=== PATIENT | female | born 1980 | race Caucasian/White ===

== ENCOUNTER → 2016-09-19 | Outpatient (CLI) | payer MEDICAID ==
--- NOTE | 2016-09-19 16:40 | US ---
Dear Dr. Alvarenga, Thank you for sending [ ] to us for a follow-up US to assess interval growth. As you know, the patient is a 36 y.o. G2, P1001 at 22 weeks and 6 days with an EDC of 01/17/17 based on an 8 week US. Her is complicated by AMA and a prior child with a unilateral club foot. At her anatomy US at 19 weeks, growth was borderline with an EFW was in the 10th percentile . Genetic Screening: NIPT reassuring (reported by patient, records not available) The patient denies any uterine contractions, vaginal bleeding, or loss of fluid. She reports excellen t movement. Today, she is without complaints. US FINDINGS: Number of fetuses: 1 Placental location: Anterior, no previa presentation: Transverse, head maternal right Cervix: 3.5 cm, transabdominally MVP: 5.5 cm Measurements: Biparietal diameter: 55 mm, 22 weeks 6 days Head circumference: 204 mm, 22 weeks 4 days Abdominal circumference: 172 mm, 22 weeks 1 days Femur length: 39 mm, 22 weeks 4 days Humerus length: 36 mm, 21 weeks 3 days Transcerebellar diameter: 23 mm, 21 weeks 3 days Cerebral Lateral Ventricle: Suboptimal Cisterna Magna: 6 mm Heart Rate: 138 bpm Average ultrasound age: 22 weeks 4 days Estimated weight: 496 g weight percentile: 20% Anatomy: anatomy was previously assessed. Today the following structures were visualized and appeared n ormal: lateral ventricles, posterior fossa, 4CH view and outflow tracts, stomach, kidneys, and bladde r. The SVC/IVC view was not previously seen. Today, we were able to visualize this cardiac anatomy as normal. Additionally, both feet were again noted to appear normal without evidence of clubbing. IMPRESSION: Growth: The fetus measures appropriate for gestational age, measuring at a normal weight and percenti le. Visualization of the fetus today reveals no overt structural anomalies. There is evidence of norm al amniotic fluid, and movement was seen during the examination. - No further US assessment is indicated given normal size today - However, I recommend a low threshold to obtain a growth US if the patient measures S<D Thank you again for sending this patient to see us today. Approximately 15 minutes were spent with th is patient today with 12 minutes of this time spent in direct face to face counseling regarding today 's US findings and our recommendations. Please contact me with any questions at . Gaviota Gooden MD Maternal- Medicine
--- NOTE | 2016-09-19 18:30 | US ---
Ultrasound Obstetric Follow Up Indication: Advanced maternal age. Family history of clubfoot. The estimated gestational age by LMP is 22 weeks and 6 days yielding an EDC of January 17, 2017. Comparison: August 2016. Findings: Number: 1 Presentation: Transverse with head to the maternal right. Placental location: Anterior without previa Cervix: 3.5 cm Amniotic MVP: 5.5 cm Biometry: Biparietal diameter: 55.00 mm 22 weeks, 6 days Head circumference: 204.44 mm 22 weeks, 4 days Abdominal circumference: 171.51 mm 22 weeks, 1 days Femur length: 38.90 mm 22 weeks, 4 days Humerus length: 36.13 mm 22 weeks, 5 days Transcerebellar diameter: 23.12 mm 21 weeks, 3 days HC/AC: 1.19 ( 1.06-1.25 ) FL/BPD: 71% FL/AC: 23% Average ultrasound age: 22 weeks, 4 days EDC based on today's average ultrasound age: January 19, 2017 Estimated weight is 496 gms +/- 72 gms. The estimated weight is at the 20 % based on prev ious dating. ANATOMY : Previous evaluated. FHR 138 bpm. Today's limited anatomy includes lateral ventricles, four-chamber view the heart comes s tomach, kidneys and bladder. Impression: 1. Living wells in transverse presentation. 2. Size concordant with dates. 3. Please see Dr. Gaviota Gooden's consult and recommendations.
== END ==
LOC: FIMAGING 14:57
DX: O09.522 Supervision of elderly multigravida, second trimester (principal); Z3A.22 22 weeks gestation of pregnancy

== ENCOUNTER 2018-07-02 18:20 | Observation (INO) | payer MEDICAID ==
[2018-07-02] MEDS ORDERED: ACETAMINOPHEN 500 MG TAB PO PRN (19:07)
[2018-07-02] MEDS ORDERED: ACETAMINOPHEN 500 MG TAB ONE (19:14)
[2018-07-02 19:52] LABS: PLATELET COUNT 175 10^3/uL (150-400)
== END 2018-07-02 20:15 | disposition home or self-care (01) ==
LOC: FLD 18:20
PROVIDERS: ADMIT Obstetrics & Gynecology; ATTEND Obstetrics & Gynecology
DX: O99.89 Other specified diseases and conditions complicating pregnancy, childbirth and the puerperium (principal); R10.31 Right lower quadrant pain; Z3A.19 19 weeks gestation of pregnancy
CPT/HCPCS: G0378

== ENCOUNTER → 2018-07-09 | Outpatient (CLI) | payer MEDICAID | LOC: FIMAGING 11:44 | PROVIDERS: ATTEND Registered Nurse | DX: O09.522 Supervision of elderly multigravida, second trimester (principal); O09.292 Supervision of pregnancy with other poor reproductive or obstetric history, second trimester; Z3A.20 20 weeks gestation of pregnancy ==